=== PATIENT | female | born 1955 ===

== ENCOUNTER 2023-08-18 06:22 | Day surgery (SDC) | payer BC, SELFPAY ==
[2023-08-08 12:06] VITALS: BMI 38.7
[2023-08-18] VITALS (12 sets, daily range): BP systolic 90–151; BP diastolic 52–88; BMI 38.7
[2023-08-18] MEDS: TYLENOL 1000 MG PO (10:52)
[2023-08-18] MEDS: NORMOSOL-R 1000 IV (11:02)
--- NOTE | 2023-08-18 12:18 | HP.FOC2 ---
Focused History & Physical
Chief Complaint
HPI:
Chief Complaint: Umbilical hernia
HPI / Indication for Planned Procedure: Patient is a 67-year-old female who has had a history of umbilical swelling present for multiple years. It is slightly increased in size and she has some discomfort in the region. Outpatient evaluation
confirmed the presence of a soft reducible umbilical hernia she presents today for scheduled operative correction.
She has a past abdominal surgical history notable for , tubal ligation, lap partial oophorectomy and lap assisted sigmoid resection for diverticular disease as well as lap jessica
Relevant Past Medical History: Other (Hypertension, arthritis, Hoffmann's esophagus, obesity with BMI 39)
Relevant Social History: Negative
Relevant Family History: Negative
Relevant Past Surgical History: Positive for (See HPI)
Review of Systems
Review of Pertinent Systems: All Systems Negative
Medication
See Medication form for detailed medications: Yes
Medication List (including Herbals & OTC):
ascorbic acid 7.5 mg-vit E 7.5 unit-biotin 1,250 mcg chewable tablet (Hair,Skin,Nails with Biotin) 1 tab PO DAILY 08/14/23
famotidine-Ca carb-mag hydrox 10 mg-800 mg-165 mg chewable tablet (Pepcid Complete) 1 tab PO PRN PRN gerd 08/14/23
gabapentin 300 mg capsule 300 mg PO HS 08/14/23
lansoprazole 30 mg capsule,delayed release 30 mg PO PRN PRN gerd 08/14/23
losartan 50 mg tablet 50 mg PO DIRECTED 08/14/23
Medications Reviewed: Yes
Allergies and Reactions
Patient has Allergies: No
Noted Allergies and Reactions:
Allergy/AdvReac Type Severity Reaction Status Date / Time
No Known Allergies Allergy Verified 08/18/23 10:48
Pertinent Physical Exam
All Other Systems: Negative
Head/Neck: Normal
Lungs: Normal
Heart: Normal
Abdomen: Other (Reducible umbilical hernia)
Extremities: Normal
Neurological: Normal
Diagnosis / Assessment
67-year-old female presenting for scheduled operative correction symptomatic umbilical hernia
Plan / Procedure
Robotic assisted laparoscopic repair umbilical hernia with mesh
Anesthesia/Sedation to be done by Anesthesia Provider: Yes
--- NOTE | 2023-08-18 12:20 | W.SUR.PREOP ---
Pre-Operative Surgical Note
-
I have examined this patient prior to the performance of the scheduled procedure.
The patient's condition is unchanged from the time of the current History and
Physical and the patient is able to undergo the scheduled procedure.
--- NOTE | 2023-08-18 14:46 | W.IMMPOSTOP ---
Surgical Immed Post Op Note
-
Primary Surgeon: Tomasa
Assisting Surgeon: Iza CONWAY
Pre-op Diagnosis: [facility]
Post-op Diagnosis: incisional umbilical hernia - incarcerated; 3cm
Procedure Performed: RAL MERARY repair incarcerated incisional/umbilical hernia with mesh; Ventralight ST 10 cm x 15 cm
Anesthesia Type: GETA + 0.25% Marcaine
Specimen / Cultures: None
Estimated Blood Loss: 8 mL
Complications: None immediate
Operative Findings: 3 fascial defects at the umbilicus where prior laparoscopic surgical scars. Fascial defects in immediate vicinity and containing incarcerated omentum all which was reduced. Total horizontal length of fascial defect 3 cm,
spanning vertical length of 3 cm. Closed with 0 PDS strata fix. Preperitoneal repair performed however areas of thinning particularly along the umbilical region of the peritoneum therefore utilized a barrier coated mesh. Ventralight ST 10 cm x 15
cm oriented vertically secured with numerous interrupted 2-0 Vicryl for the posterior sheath and linea alba. Peritoneal flap left lateral abdominal wall closed with 2-0 Monocryl STRATAFIX spiral.
[2023-08-18] MEDS: SUBLIMAZE 50 MCG IV ×2 (14:58→15:42)
[2023-08-18] MEDS: COMPAZINE 5 MG IV (15:05)
[2023-08-18] MEDS: TYLENOL 650 MG PO (17:09)
== END 2023-08-18 17:15 | disposition home or self-care (01) ==
LOC: SDS 06:22
PROVIDERS: ATTENDING PHYSICIAN Surgery; FAMILY PHYSICIAN Family Medicine
DX: K43.0 Incisional hernia with obstruction, without gangrene (principal); K42.9 Umbilical hernia without obstruction or gangrene
CPT/HCPCS: 49592; 36415; 93005; C1713